=== PATIENT | female | born 1990 | race Caucasian/White ===

== ENCOUNTER 2018-11-05 22:30 | Inpatient (IN) ==
[2018-11-06] MEDS ORDERED: INSULIN REGULAR, HUMAN 100 UNITS in NORMAL SALINE 100 ML IV PRN ×2 (00:05)
[2018-11-06] MEDS ORDERED: OXYTOCIN/DEXTROSE 5%-WATER 30 UNITS/500 ML BAG IV ONE ×2 (00:05→14:34)
[2018-11-06] MEDS ORDERED: RINGER'S SOLUTION,LACTATED 1,000 ML IV ONE (00:05)
[2018-11-06] MEDS ORDERED: ONDANSETRON 4 MG TAB.RAPDIS PO PRN (00:05)
[2018-11-06 01:56] LABS: Cocaine Ur Negative (NEGATIVE); Urine Barbiturate Negative (NEGATIVE); Urine Benzodiazepines Negative (NEGATIVE); Urine Opiates Negative (NEGATIVE); Urine PCP Negative (NEGATIVE); Urine THC Negative (NEGATIVE)
--- NOTE | 2018-11-06 09:45 | HP ---
Chief Complaint - Chief Complaint Date of Service: 11/06/18 Time of Service: 09:45 Chief Complaint: Medical induction of labor History of Present Illness: 28 yo at 39 weeks here for induction of labor due to insulin dependent gestational diabetes. This complicated by gestational diabetes - insulin dependent, morbid obesity, history of shoulder dystocia, and history of depression. Rh positive Rubella immune GBS negative Medical History (Updated 11/06/18 @ 09:45 by Renzo Toney DO) BMI 40.0-44.9, adult (Chronic) History of shoulder dystocia in prior (Chronic) >5000g baby with clavicle fx. No fdc sequela History of gestational diabetes (Chronic) diet controlled Anemia Onset Date: 08/23/18 w/ Cholecystitis Onset Date: 12/2014 Depression Onset Date: ~2008 Tx'd with Lexapro. No medications for 7 years. Hx gestational diabetes Onset Date: 2016 2016-diet controlled. 2019-Insulin. Hx of shoulder dystocia in prior , currently Onset Date: 2014 Surgical History: Surgical History (Updated 07/22/18 @ 16:35 by Janelle Gooden DO) History of oral surgery Onset Date: Unknown teeth pulled and gingiva grafting Hx of cholecystectomy Onset Date: 12/2014 Benjamin. Pt was told following sx that it "takes her awhile to come out of anesthesia". Family History: Family History (Updated 03/24/18 @ 10:23 by Smiley Ferreira RN) Mother Skin cancer Chronic mental illness Father Skin cancer Prediabetes Grandfather Heart disease paternal Grandfather , Maternal Prostate cancer Grandmother , Maternal. Suicide Depression Brother Urinary reflux Social History: Preferred Language Setsw[place] Smoking Status Never smoker (Last Updated 11/03/18 @ 15:51 by Renzo Toney DO) No Social History Section defined Review Of Systems (GEN) - Review of Systems Generalized/Overall Review: Present: No Symptoms Reported EENTM: Present: No Symptoms Reported Respiratory: Present: No Symptoms Reported Cardiac: Present: No Symptoms Reported Abdominal: Present: No Symptoms Reported Genitourinary: Present: No Symptoms Reported Musculoskeletal: Present: No Symptoms Reported Neurological: Present: No Symptoms Reported Skin: Present: No Symptoms Reported Endocrine: Present: No Symptoms Reported Allergies/Adverse Reactions: Allergies Allergy/AdvReac Type Severity Reaction Status Date / Time amoxicillin Allergy hives Verified 11/06/18 00:07 Sulfa (Sulfonamide Allergy Hives Verified 11/06/18 00:07 Antibiotics) Home Medications: HOME MEDICATIONS vitamin,calcium,gokaskki-yljy-gaart acid tablet 1 tab PO DAILY 03/24/18 [Last Taken 07/22/18] lactobacillus combination no.8 3 billion cell capsule 3,000 mmu cells PO DAILY cap 05/03/18 [Last Taken 07/21/18] ferrous sulfate 325 mg (65 mg iron) tablet 325 mg PO DAILY #30 tab 08/24/18 [Last Taken Unknown] acetone (urine) test strips See Dose Instructions .ROUTE .MEDSUPPLY #100 ea 08/30/18 [Last Taken Unknown] blood sugar diagnostic strips See Dose Instructions .ROUTE .MEDSUPPLY #100 ea 08/30/18 [Last Taken Unknown] blood-glucose meter kit See Dose Instructions .ROUTE .MEDSUPPLY #1 ea 08/30/18 [Last Taken Unknown] lancets See Dose Instructions .ROUTE .MEDSUPPLY #100 ea 08/30/18 [Last Taken Unknown] insulin syringe U-100 with needle 1 mL 25 gauge x 5/8" See Dose Instructions .ROUTE .MEDSUPPLY #100 ea 09/08/18 [Last Taken Unknown] insulin NPH isophane U-100 human 100 unit/mL subcutaneous suspension 28 unit SUBCUT QACDINNER #10 ml 10/25/18 [Last Taken 1 Day Ago ~11/05/18 28 units] insulin lispro (U-100) 100 unit/mL subcutaneous solution 6 unit SUBCUT QACLUNCH #10 ml 10/25/18 [Last Taken 1 Day Ago ~11/05/18 6 units] Exam - Exam Vital Signs: Vital Signs - Last Taken Temp 36.2 C 11/06/18 01:29 Pulse 97 11/06/18 01:29 Resp 14 11/06/18 01:29 BP 126/75 11/06/18 01:29 Pulse Ox 98 11/06/18 01:29 Constitutional: Present: Alert, Oriented x3, Cooperative, No distress ENT Exam: Present: hearing grossly normal Breasts: Present: Exam deferred Respiratory: Present: lungs clear, no respiratory distress Cardiovascular/Chest: Present: normal peripheral pulses, regular rate, rhythm, no edema Abdomen: Present: soft, nontender, no rebound tenderness, other - gravid /Rectal: Present: Other - cervix 4-5/60/-3 Extremity: Present: non-tender, no pedal edema, no calf tenderness Skin Exam: Present: normal color, warm/dry, no cyanosis Neurologic: Present: alert, normal mood/affect, oriented x 3 Appearance: Present: appropriate appearance, appropriate insight Eye contact: Present: cooperative, good eye contact Thoughts: Present: normal thought pattern Diagnostic Studies: Laboratory Results Negative (NEGATIVE) 11/06/18 01:29 Negative (NEGATIVE) 11/06/18 01:29 Ur Phencyclidine Scrn Negative (NEGATIVE) 11/06/18 01:29 Urine Amphetamine Negative (NEGATIVE) 11/06/18 01:29 U Benzodiazepines Scrn Negative (NEGATIVE) 11/06/18 01:29 Negative (NEGATIVE) 11/06/18 01:29 Negative (NEGATIVE) 11/06/18 01:29 NST reactive Assessment/Plan - Assessment/Plan (1) Gestational diabetes mellitus (GDM) requiring insulin Assessment: Admit for induction of labor. Epidural PRN. Glucose monitoring throughout labor. Insulin drip protocol. Problem: Acute (2) BMI 40.0-44.9, adult Problem: Chronic (3) History of shoulder dystocia in prior Problem: Chronic
--- NOTE | 2018-11-06 09:52 | PN ---
Progess Note - Interim Date: 11/06/18 Time: 09:46 Narrative: 11/06/18 09:46 Patient becoming more uncomfortable with contractions-rating them 4/10 Vital signs stable. Last blood sugar 90 Pitocin at 12 mu/min. FHT: 130 baseline, reassuring Contractions q 1-3 min Cervix: 5/60/-2 Impression: Intrauterine at 39 weeks induction of labor for insulin- dependent gestational diabetes poorly controlled Plan: Continue present plan
--- NOTE | 2018-11-06 12:51 | PN ---
Progess Note - Interim Date: 11/06/18 Time: 12:49 Narrative: 11/06/18 12:49 Patient tolerating contractions well Vital signs stable. Blood sugar 96 Pitocin at 12 mu/min. FHT: 140 baseline, reassuring Contractions q 1-4 min Cervix: 6/70/-2, AROM-clear Impression: Intrauterine at 39 weeks induction of labor for insulin- dependent gestational diabetes with fair compliance Plan: Anticipate normal spontaneous vaginal delivery 7 11/06/18 12:51
[2018-11-06] MEDS ORDERED: LIDOCAINE HCL 50 ML VIAL ONE (14:06)
[2018-11-06] MEDS ORDERED: LIDOCAINE HCL 50 ML VIAL PERI STA (14:09)
[2018-11-06] MEDS ORDERED: SENNOSIDES 8.6 MG TABLET PO PRN (14:34)
[2018-11-06] MEDS ORDERED: HYDROCORTISONE 30 APPL TUBE TP PRN (14:34)
[2018-11-06] MEDS ORDERED: ACETAMINOPHEN 325 MG TABLET PO PRN (14:34)
[2018-11-06] MEDS ORDERED: oxyCODONE HCL/ACETAMINOPHEN 1 TAB TABLET PO PRN (14:34)
[2018-11-06] MEDS ORDERED: BENZOCAINE/MENTHOL 81 SPRAY CAN TP PRN (14:34)
[2018-11-06] MEDS ORDERED: BISACODYL 10 MG SUPP.RECT RC PRN (14:34)
[2018-11-06] MEDS ORDERED: GLYCERIN/WITCH HAZEL LEAF 40 APPL BOX TP PRN (14:34)
--- NOTE | 2018-11-06 14:39 | OR ---
Operative Report - Dictated Report Narrative: Spontaneous vaginal delivery of vigorously crying viable male at 1357 on 11/06/2018 with Apgars 7 and 9, weighing 4818 g in HERMINIA position. Cord clamping delayed approximately 1 minute Placenta delivered complete, intact, with three vessel cord Estimated blood loss: less than 50 ml Anesthesia: 1% plain lidocaine Local anesthetic for vaginal repair (20 ml) Lacerations: Second-degree vaginal laceration repaired with 3-0 Vicryl Rapide (4cm) History for MU History for Definition: * The number of deliveries resulting in a live the patient experienced prior to current hospitalization * The previous delivery of live twins or any live multiple gestation is considered one live event. *If primagravida or nulliparous is documented select zero for the number of previous live births. Live Events: Live Events: 2
[2018-11-06] MEDS: IBUPROFEN 800 MG TABLET PO PRN (16:27)
[2018-11-06] MEDS: DOCUSATE SODIUM 100 MG CAPSULE PO SCH (20:31)
[2018-11-07] MEDS: IBUPROFEN 800 MG TABLET PO PRN ×3 (03:34→21:31)
--- NOTE | 2018-11-07 09:02 | PN ---
Subjective - Date and Time Seen Date: 11/07/18 Time: 09:02 Objective - Vitals Vitals: Last Vital Signs Temp 36.4 C 11/07/18 08:15 Pulse 86 11/07/18 08:15 Resp 16 11/07/18 08:15 BP 123/66 11/07/18 08:15 Pulse Ox 99 11/07/18 08:15 Patient denies complaints. Breast-feeding Lochia wnl Abdomen - soft, nontender Uterus - firm, at umbilicus - 1 No calf tenderness Impression: day #1 - s/p spontaneous vaginal delivery. Gestational diabetes-resolving. Plan: Continue routine care. Assessment/Plan - Problems/Diagnosis (1) Gestational diabetes mellitus (GDM) requiring insulin Problem: Acute (2) BMI 40.0-44.9, adult Problem: Chronic (3) History of shoulder dystocia in prior Problem: Chronic
[2018-11-07] MEDS: FERROUS SULFATE 325 MG TABLET PO SCH (09:48)
[2018-11-07] MEDS: [UNRECOGNIZED DRUG - OTHER] PO SCH (09:48)
[2018-11-07] MEDS: PRENATAL VITS96/IRON FUM/FOLIC 1 TAB TABLET PO SCH (09:48)
[2018-11-07] MEDS: DOCUSATE SODIUM 100 MG CAPSULE PO SCH ×2 (09:48→21:31)
[2018-11-08 07:06] VITALS: BP 114/66
[2018-11-08] MEDS: IBUPROFEN 800 MG TABLET PO PRN (09:18)
[2018-11-08] MEDS: FERROUS SULFATE 325 MG TABLET PO SCH (09:18)
[2018-11-08] MEDS: PRENATAL VITS96/IRON FUM/FOLIC 1 TAB TABLET PO SCH (09:19)
[2018-11-08] MEDS: DOCUSATE SODIUM 100 MG CAPSULE PO SCH (09:19)
[2018-11-08] MEDS: [UNRECOGNIZED DRUG - OTHER] PO SCH (09:20)
--- NOTE | 2018-11-08 10:16 | PN ---
Subjective - Date and Time Seen Date: 11/08/18 Time: 10:15 Objective - Vitals Vitals: Last Vital Signs Temp 36.1 C 11/08/18 07:04 Pulse 86 11/08/18 07:04 Resp 16 11/08/18 07:04 BP 114/66 11/08/18 07:04 Pulse Ox 99 11/08/18 07:04 Patient denies complaints. Breast-feeding Lochia wnl Abdomen - soft, nontender Uterus - firm, at umbilicus - 2 No calf tenderness Impression: day #2 - s/p spontaneous vaginal delivery. Insulin- dependent gestational diabetes-resolved Plan: Routine discharge instructions. Check blood sugars at visit Assessment/Plan - Problems/Diagnosis (1) Gestational diabetes mellitus (GDM) requiring insulin Problem: Acute (2) BMI 40.0-44.9, adult Problem: Chronic (3) History of shoulder dystocia in prior Problem: Chronic
== END 2018-11-08 11:40 | disposition home or self-care (01) | DRG 807 ==
LOC: OB 22:30
PROVIDERS: ADMIT Obstetrics & Gynecology; ATTEND Obstetrics & Gynecology
CPT/HCPCS: 59025; 80307; 88307